=== PATIENT | male | born 1980 | race Caucasian/White ===

== ENCOUNTER → 2016-10-02 | Outpatient (CLI) | payer OTHER ==
--- NOTE | ~2016-10-02 | US48 ---
[facility]. [facility] A Service of [facility] RADIOLOGY TEXT RESULTS PATIENT: DERIC DO LOCATION: [facility] : 84 UNIT #: [id number] AGE: [address]: LORENZO PRICE APRN SEX: M ORDER DR: [id number] [place] [id number] O MR#: [id number] Acc #: [id number] NAME: DERIC DO : 1980 SEX: M STUDY DATE/TIME: 10/02/2016 10:13 UNIT: [facility] ROOM: STUDY DESCRIPTION: US Extremity Anatomic Specific Attending Physician: Lorenzo Price Aprn Referring Physician: Lorenzo Price Aprn Ordering Physician: Lorenzo Price Aprn Primary Care Physician: Fahad Purdy M.D. MEDICAL IMAGING REPORT This report is preliminary unless electronic signature is present. EXAM Ultrasound of the left shoulder, soft tissue. INDICATION Left posterior shoulder nodule for 3-4 years. Patient reports that this nodule recently started hurting the past 2-3 weeks. TECHNIQUE Villa-scale and color Doppler sonographic images were obtained through the area concern. Within the area concern, no solid or cystic masses are identified. No fluid collections are seen. No abnormal increased vascularity is identified. IMPRESSION No findings identified within the patient's palpable area of concern within the left shoulder. If symptoms persist, the area could be further assessed with MRI as deemed clinically appropriate. Dictated by... Xenia Barron M.D. THIS IS AN ELECTRONICALLY VERIFIED REPORT Xenia Barron M.D. at 10/02/2016 4:57 PM AFF/manish TD: 10/02/2016 16:01 JOB #: [id number] MEDICAL IMAGING REPORT Page 1 of 1
== END | disposition home or self-care (01) ==
LOC: SGUS 10:02
DX: L72.9 Follicular cyst of the skin and subcutaneous tissue, unspecified (principal)
CPT/HCPCS: 76882